=== PATIENT | female | born 1940 | race African-American/Black ===

== ENCOUNTER → 2016-09-05 | Outpatient (CLI) | payer MEDICARE, BC ==
[~2016-09-05] MED LIST: REGADENOSON 0.4 MG/5 ML IV ONE
== END | disposition home or self-care (01) ==
LOC: RAD 07:29
DX: R07.9 Chest pain, unspecified (principal)
CPT/HCPCS: 78452; 93017; A9500; J2785

== ENCOUNTER 2022-09-10 19:35 | Inpatient (IN) | payer MEDICARE, BC ==
[~2022-09-10] VITALS: Ht 170.2 cm; Wt 72.6 kg
[2022-09-10] MEDS ORDERED: IPRATROPIUM BROMIDE (0.02%) 0.5MG/2.5ML NEB HHN STA (20:56)
[2022-09-10] MEDS ORDERED: ALBUTEROL (0.083%) 2.5MG/3ML NEB HHN STA (20:56)
[2022-09-10] MEDS ORDERED: NITROGLYCERIN 0.4MG TABLET SL SL PRN (21:00)
[2022-09-10] MEDS ORDERED: LABETALOL 5MG/ML SYR 20 MG/4 ML SYRINGE IV ONE (22:30)
[2022-09-10 22:45] LABS: BASOPHILS % 0.8 % (0.0-2.0); EOSINOPHILS % 1.3 % (0.0-5.0); HEMATOCRIT. 34.8 % (36.0-48.0); HEMOGLOBIN. 11.6 g/dL (12.0-16.0); LYMPHOCYTES % 20.1 % (20.0-50.0); MEAN CORPUSCULAR HEMOGLOBIN 31.2 pg (28.0-32.0); MEAN CORPUSCULAR VOLUME 93.3 fL (81.0-99.0); MEAN PLATELET VOLUME 9.1 fl (7.4-10.4); NEUTROPHILS % 71.8 % (40.0-76.0); PLATELET 278 x1000/uL (130-400); RED BLOOD CELL COUNT 3.72 mill/uL (4.2-5.4); RED CELL DISTRIBUTION WIDTH 14.3 % (11.6-14.6)
[2022-09-10 22:52] LABS: CHLORIDE 91 mEq/L (98-107)
[2022-09-10 23:49] LABS: BG BASE EXCESS -4.2 mmol/L (-2.0-2.0); BG CARBOXYHEMOGLOBIN 0.3 % (0.5-1.5); BG DEOXYHEMOGLOBIN 1.4 % (0.0-5.0); BG FRACTION INSPIRED OXYGEN 40; BG HCO3 ACT 18.9 mmol/L (22.0-26.0); BG METHEMOGLOBIN 0.2 % (0.0-1.5); BG OXYGEN SATURATION 98.6 % (92.0-98.5); BG OXYHEMOGLOBIN 98.1 % (94.0-97.0); BG PCO2 28.4 mmHg (35.0-45.0); BG PO2 141.9 mmHg (75.0-100.0); BG SAMPLE SITE RIGHT RADIAL; BG TOTAL HEMOGLOBIN 11.3 g/dL (12.0-18.0); BG VENT MODE MASK - BIPAP
[2022-09-11] VITALS (13 sets, daily range): BP systolic 91–161; BP diastolic 47–80
[2022-09-11] MEDS ORDERED: SODIUM BICARBONATE 8.4% 1 MEQ/ML 50ML SYR IV ONE
[2022-09-11] MEDS ORDERED: CALCIUM CHLORIDE 1GM/10ML SYR IV ONE
[2022-09-11] MEDS ORDERED: CLONIDINE 0.2MG TABLET PO NR (00:45)
[2022-09-11] MEDS ORDERED: CLONIDINE 0.1MG TABLET PO NR (01:10)
[2022-09-11] MEDS ORDERED: DOCUSATE SODIUM 100MG CAPSULE PO PRN (01:30)
[2022-09-11] MEDS ORDERED: FUROSEMIDE 40MG/4ML VIAL IVP NR (01:30)
[2022-09-11] MEDS ORDERED: GUAIFENESIN 200MG/10ML SUGAR FREE UDC PO PRN (01:30)
[2022-09-11] MEDS ORDERED: IPRATROPIUM/ALBUTEROL 0.5-3(2.5)MG/3ML NEB HHN PRN (01:30)
[2022-09-11] MEDS ORDERED: CLONIDINE 0.1MG TABLET PO PRN (01:30)
[2022-09-11] MEDS ORDERED: MAGNESIUM/ALUMINUM HYDROXIDE/SIMETHICONE 30ML UDC PO PRN (01:30)
[2022-09-11] MEDS ORDERED: ACETAMINOPHEN 325MG TABLET PO PRN (01:30)
[2022-09-11] MEDS ORDERED: ONDANSETRON HCL 4MG/2ML INJ IV PRN (01:30)
[2022-09-11 01:54] LABS: CLARITY URINE CLEAR (CLEAR); COLOR URINE YELLOW (YELLOW); KETONES URINE NEGATIVE (NEGATIVE); LEUKOCYTE ESTERASE URINE NEGATIVE (NEGATIVE); NITRITE URINE NEGATIVE (NEGATIVE); OCCULT BLOOD URINE NEGATIVE (NEGATIVE); PH URINE 6.5 (4.5-8.0); PROTEIN URINE NEGATIVE (NEGATIVE); SPECIFIC GRAVITY URINE 1.006 (1.005-1.030); UROBILINOGEN URINE 0.2 E.U./dL (0.2-1.0)
[2022-09-11] MEDS ORDERED: SODIUM CHLORIDE 1000MG TABLET PO NR (02:00)
[2022-09-11 08:00] LABS: BASOPHILS % 0.7 % (0.0-2.0); EOSINOPHILS % 1.6 % (0.0-5.0); HEMATOCRIT. 29.1 % (36.0-48.0); HEMOGLOBIN. 10.1 g/dL (12.0-16.0); LYMPHOCYTES % 23.2 % (20.0-50.0); MEAN CORPUSCULAR HEMOGLOBIN 31.7 pg (28.0-32.0); MEAN CORPUSCULAR VOLUME 91.4 fL (81.0-99.0); MEAN PLATELET VOLUME 9.4 fl (7.4-10.4); MONOCYTES % 9.7 % (2.0-8.0); NEUTROPHILS % 64.8 % (40.0-76.0); PLATELET 223 x1000/uL (130-400); RED BLOOD CELL COUNT 3.18 mill/uL (4.2-5.4); RED CELL DISTRIBUTION WIDTH 14.1 % (11.6-14.6)
[2022-09-11] MEDS: IPRATROPIUM/ALBUTEROL 0.5-3(2.5)MG/3ML NEB HHN SCH ×2 (08:14→20:29)
[2022-09-11 08:37] LABS: CHLORIDE 94 mEq/L (98-107)
[2022-09-11 08:53] LABS: CREATINE KINASE 159 IU/L (26-192); HDL CHOLESTEROL 86 mg/dL (40-59); LDL CHOLESTEROL 38 mg/dL (5-100); PHOSPHORUS 3.3 mg/dL (2.5-4.9); T4 FREE 1.76 ng/dL (0.76-1.46); TOTAL IRON BINDING CAPACITY 353 ug/dL (250-450)
[2022-09-11 08:56] LABS: FOLIC ACID (FOLATE) SERUM 13.5 ng/mL (>5.38)
[2022-09-11] MEDS ORDERED: FAMOTIDINE 20MG TABLET PO SCH (09:00)
[2022-09-11] MEDS ORDERED: ENOXAPARIN 40MG/0.4ML SYR SUBCUT SCH (09:00)
[2022-09-11] MEDS: PANTOPRAZOLE 40MG DR TABLET PO SCH (09:15)
[2022-09-11 09:21] LABS: BG CARBOXYHEMOGLOBIN 0.3 % (0.5-1.5); BG DEOXYHEMOGLOBIN 1.4 % (0.0-5.0); BG FRACTION INSPIRED OXYGEN 32; BG HCO3 ACT 21.5 mmol/L (22.0-26.0); BG METHEMOGLOBIN 0.3 % (0.0-1.5); BG OXYGEN SATURATION 98.6 % (92.0-98.5); BG PCO2 28.3 mmHg (35.0-45.0); BG PH 7.498 (7.350-7.450); BG PO2 142.1 mmHg (75.0-100.0); BG SAMPLE SITE RIGHT RADIAL; BG TOTAL HEMOGLOBIN 10.2 g/dL (12.0-18.0); BG VENT MODE NASAL CANNULA
[2022-09-11] MEDS ORDERED: ALLO100T PO (13:28)
[2022-09-11] MEDS ORDERED: ZOLP5TAB2 PO (13:28)
[2022-09-11] MEDS ORDERED: IRON SUCROSE COMPLEX 100 MG/5 ML ML IV NR (13:30)
[2022-09-11] MEDS ORDERED: FURO-152 PO (13:46)
[2022-09-11] MEDS ORDERED: MAGN400T26 PO (13:46)
[2022-09-11] MEDS ORDERED: CYCL30DR EACHEYE (13:46)
[2022-09-11] MEDS ORDERED: ASPI-1497 PO (13:46)
[2022-09-11] MEDS ORDERED: NEBI20TA2 PO (13:46)
[2022-09-11] MEDS ORDERED: NITR0.4T49 SL (13:46)
[2022-09-11] MEDS ORDERED: LIP40 PO (13:46)
[2022-09-11] MEDS ORDERED: CLOP-31 PO (13:46)
[2022-09-11] MEDS ORDERED: HYDR-4134 PO (13:46)
[2022-09-11] MEDS ORDERED: HYDR200T80 PO (13:46)
[2022-09-11] MEDS ORDERED: PROP10DR4 EACHEYE (13:46)
[2022-09-11] MEDS: ASPIRIN 81MG EC TABLET PO SCH (15:25)
[2022-09-11 18:11] LABS: CREATINE KINASE MB FRACTION 6.5 ng/mL (0.5-3.6)
[2022-09-11] MEDS: NEBIVOLOL HCL 5 MG TABLET PO SCH (20:48)
[2022-09-11] MEDS: ZOLPIDEM TARTRATE 5MG TABLET PO PRN (22:57)
[2022-09-12] VITALS (7 sets, daily range): BP systolic 113–164; BP diastolic 32–78
[2022-09-12 07:05] LABS: BASOPHILS % 0.5 % (0.0-2.0); EOSINOPHILS % 3.3 % (0.0-5.0); HEMATOCRIT. 25.4 % (36.0-48.0); HEMOGLOBIN. 8.9 g/dL (12.0-16.0); LYMPHOCYTES % 25.5 % (20.0-50.0); MEAN CORPUSCULAR HEMOGLOBIN 31.5 pg (28.0-32.0); MEAN CORPUSCULAR VOLUME 90.3 fL (81.0-99.0); MONOCYTES % 9.3 % (2.0-8.0); NEUTROPHILS % 61.4 % (40.0-76.0); PLATELET 213 x1000/uL (130-400); RED BLOOD CELL COUNT 2.81 mill/uL (4.2-5.4); RED CELL DISTRIBUTION WIDTH 14.2 % (11.6-14.6)
[2022-09-12] MEDS: IPRATROPIUM/ALBUTEROL 0.5-3(2.5)MG/3ML NEB HHN SCH ×4 (09:14→20:32)
[2022-09-12] MEDS: FUROSEMIDE 40MG/4ML VIAL IVP SCH (11:29)
[2022-09-12] MEDS: ASPIRIN 81MG EC TABLET PO SCH (11:30)
[2022-09-12] MEDS: NEBIVOLOL HCL 5 MG TABLET PO SCH ×2 (11:30→22:07)
[2022-09-12] MEDS: PANTOPRAZOLE 40MG DR TABLET PO SCH (11:31)
[2022-09-12] MEDS: FERROUS SULFATE 325MG TABLET PO SCH (17:40)
[2022-09-12] MEDS: ZOLPIDEM TARTRATE 5MG TABLET PO PRN (22:16)
[2022-09-13] VITALS: BP 155/63
[2022-09-13] MEDS: IPRATROPIUM/ALBUTEROL 0.5-3(2.5)MG/3ML NEB HHN SCH ×4 (01:46→20:48)
[2022-09-13 04:00] VITALS: BP 138/49
[2022-09-13 07:49] LABS: BASOPHILS % 0.7 % (0.0-2.0); EOSINOPHILS % 5.5 % (0.0-5.0); HEMATOCRIT. 25.1 % (36.0-48.0); HEMOGLOBIN. 8.7 g/dL (12.0-16.0); LYMPHOCYTES % 25.7 % (20.0-50.0); MEAN CORPUSCULAR HEMOGLOBIN 31.6 pg (28.0-32.0); MEAN CORPUSCULAR VOLUME 90.7 fL (81.0-99.0); MEAN PLATELET VOLUME 8.9 fl (7.4-10.4); NEUTROPHILS % 59.1 % (40.0-76.0); PLATELET 215 x1000/uL (130-400); RED BLOOD CELL COUNT 2.76 mill/uL (4.2-5.4); RED CELL DISTRIBUTION WIDTH 14.2 % (11.6-14.6)
[2022-09-13 07:53] LABS: CHLORIDE 105 mEq/L (98-107)
[2022-09-13 08:00] VITALS: BP 155/45
[2022-09-13] MEDS: ASPIRIN 81MG EC TABLET PO SCH (09:00)
[2022-09-13] MEDS: FERROUS SULFATE 325MG TABLET PO SCH ×2 (11:27→17:07)
[2022-09-13] MEDS: FUROSEMIDE 40MG/4ML VIAL IVP SCH (11:28)
[2022-09-13] MEDS: PANTOPRAZOLE 40MG DR TABLET PO SCH (11:29)
[2022-09-13] MEDS: NEBIVOLOL HCL 5 MG TABLET PO SCH ×2 (11:29→21:46)
[2022-09-13 11:47] VITALS: BP 174/78
[2022-09-13 16:00] VITALS: BP 154/67
[2022-09-13 20:00] VITALS: BP 144/78
[2022-09-13] MEDS: ZOLPIDEM TARTRATE 5MG TABLET PO PRN (23:31)
[2022-09-14] VITALS: BP 139/77
[2022-09-14] MEDS: IPRATROPIUM/ALBUTEROL 0.5-3(2.5)MG/3ML NEB HHN SCH ×4 (00:48→20:57)
[2022-09-14 03:42] VITALS: BP 151/72
[2022-09-14 07:00] LABS: BASOPHILS % 0.6 % (0.0-2.0); EOSINOPHILS % 5.6 % (0.0-5.0); HEMATOCRIT. 27.2 % (36.0-48.0); HEMOGLOBIN. 9.5 g/dL (12.0-16.0); LYMPHOCYTES % 25.2 % (20.0-50.0); MEAN CORPUSCULAR HEMOGLOBIN 31.8 pg (28.0-32.0); MEAN PLATELET VOLUME 8.7 fl (7.4-10.4); MONOCYTES % 9.1 % (2.0-8.0); NEUTROPHILS % 59.5 % (40.0-76.0); PLATELET 229 x1000/uL (130-400); RED BLOOD CELL COUNT 2.99 mill/uL (4.2-5.4); RED CELL DISTRIBUTION WIDTH 14.2 % (11.6-14.6)
[2022-09-14 08:08] VITALS: BP 153/54
[2022-09-14 08:09] LABS: *CREATININE RANDOM URINE 23.2 mg/dL (Not Estab.); MICROALBUMIN RANDOM URINE 30.5 ug/mL (Not Estab.)
[2022-09-14] MEDS: FERROUS SULFATE 325MG TABLET PO SCH ×2 (08:18→16:26)
[2022-09-14] MEDS: FUROSEMIDE 40MG/4ML VIAL IVP SCH (08:18)
[2022-09-14] MEDS: POLYETHYLENE GLYCOL 3350 (17GM) 1 DOSE PACK PO SCH (08:18)
[2022-09-14] MEDS: CLOPIDOGREL 75MG TABLET PO SCH (08:19)
[2022-09-14] MEDS: ASPIRIN 81MG EC TABLET PO SCH (08:19)
[2022-09-14] MEDS: HYDROXYCHLOROQUINE SULFATE 200MG TABLET PO SCH (08:19)
[2022-09-14] MEDS: NEBIVOLOL HCL 5 MG TABLET PO SCH ×2 (08:19→21:37)
[2022-09-14] MEDS: PANTOPRAZOLE 40MG DR TABLET PO SCH (08:19)
[2022-09-14 11:42] VITALS: BP 152/59
[2022-09-14 15:51] VITALS: BP 141/52
[2022-09-14 20:00] VITALS: BP 158/60
[2022-09-15] VITALS: BP 135/66
[2022-09-15] MEDS: ZOLPIDEM TARTRATE 5MG TABLET PO PRN (01:57)
[2022-09-15] MEDS: IPRATROPIUM/ALBUTEROL 0.5-3(2.5)MG/3ML NEB HHN SCH ×3 (02:09→14:44)
[2022-09-15 04:00] VITALS: BP 147/76
[2022-09-15 08:00] VITALS: BP 110/78
[2022-09-15] MEDS: POLYETHYLENE GLYCOL 3350 (17GM) 1 DOSE PACK PO SCH (09:15)
[2022-09-15] MEDS: HYDROXYCHLOROQUINE SULFATE 200MG TABLET PO SCH (09:16)
[2022-09-15] MEDS: FERROUS SULFATE 325MG TABLET PO SCH (09:16)
[2022-09-15] MEDS: CLOPIDOGREL 75MG TABLET PO SCH (09:16)
[2022-09-15] MEDS: PANTOPRAZOLE 40MG DR TABLET PO SCH (09:16)
[2022-09-15] MEDS: NEBIVOLOL HCL 5 MG TABLET PO SCH (09:16)
[2022-09-15] MEDS: ASPIRIN 81MG EC TABLET PO SCH (09:17)
[2022-09-15] MEDS: FUROSEMIDE 40MG/4ML VIAL IVP SCH (09:17)
[2022-09-15 11:57] VITALS: BP 112/70
== END 2022-09-15 16:58 | disposition home health service (06) | DRG 280 ==
LOC: ER 19:35 → MICUSO 22:18 → 5EST 09-11 01:50 → 7WST 09-14 03:05
PROVIDERS: ADMIT Hospitalist; ATTEND Hospitalist
PROC: 5A09357 Assistance with Respiratory Ventilation, Less than 24 Consecutive Hours, Continuous Positive Airway Pressure (ICD-10-PCS; principal; 2022-09-10)
PROC: 5A09357 Assistance with Respiratory Ventilation, Less than 24 Consecutive Hours, Continuous Positive Airway Pressure (ICD-10-PCS; 2022-09-11)
DX: I13.0 Hypertensive heart and chronic kidney disease with heart failure and stage 1 through stage 4 chronic kidney disease, or unspecified chronic kidney disease (principal); I21.A1 Myocardial infarction type 2; I50.31 Acute diastolic (congestive) heart failure; J96.01 Acute respiratory failure with hypoxia; E87.1 Hypo-osmolality and hyponatremia; J44.1 Chronic obstructive pulmonary disease with (acute) exacerbation; D50.9 Iron deficiency anemia, unspecified; K21.9 Gastro-esophageal reflux disease without esophagitis; M32.9 Systemic lupus erythematosus, unspecified; N18.9 Chronic kidney disease, unspecified; E78.00 Pure hypercholesterolemia, unspecified; Z20.822 Contact with and (suspected) exposure to COVID-19; Z79.02 Long term (current) use of antithrombotics/antiplatelets; Z79.82 Long term (current) use of aspirin; Z79.899 Other long term (current) drug therapy; Z88.0 Allergy status to penicillin; Z87.11 Personal history of peptic ulcer disease; Z87.891 Personal history of nicotine dependence; Z88.6 Allergy status to analgesic agent
CPT/HCPCS: 36415; 36600; 71045; 71250; 80048; 80053; 80061; 81003; 82043; 82375; 82550; 82553; 82570; 82607; 82746; 82805; 83540; 83550; 83735; 83880; 84100; 84145; 84300; 84439; 84443; 84481; 84484; 85025; 85044; 87426; 93005; 93306; 93970; 94640; 94660; 97116; 97162; 97166; 99291; J1650; J1940; J3490; A4315